=== PATIENT | female | born 1955 | race Caucasian/White ===

== ENCOUNTER 2021-07-03 09:14 | Outpatient (CLI) | payer OTHER | END 2021-07-03 09:27 | disposition home or self-care (01) | LOC: SONOGRAMA 09:14 | PROVIDERS: ATTEND Obstetrics & Gynecology | DX: N84.0 Polyp of corpus uteri (principal) ==

== ENCOUNTER 2023-02-06 08:45 | Outpatient (CLI) | payer OTHER | END 2023-02-06 08:51 | disposition home or self-care (01) | LOC: TOM 08:45 | PROVIDERS: ATTEND Internal Medicine Hepatology | DX: K62.5 Hemorrhage of anus and rectum (principal) ==